=== PATIENT | female | born 1980 | race Two or more races ===

== ENCOUNTER 2024-12-18 19:56 | Inpatient (IN) | payer OTHER ==
[2024-12-18 20:25] VITALS: BMI 42.5
[2024-12-18] MEDS ORDERED: NICOTINE 7 MG/24 HOURS TOPICAL PATCH TD ONE (21:14)
[2024-12-18 21:16] LABS: EOS % 2.5 % (0-4.5); HEMATOCRIT 40.1 % (32.4-45.2); HEMOGLOBIN 13.4 GM/dL (10.7-15.3); LYMPH % 48.7 % (8-40); MCHC 33.5 g/dl (32.0-36.0); MEAN CELL VOLUME 92.5 fl (80-96); MEAN PLT VOLUME 7.5 fl (7.5-11.1); MONO % 4.9 % (3.8-10.2); NEUT % 42.9 % (42.8-82.8); PLATELET COUNT 252 10^3/uL (134-434); RBC 4.33 M/mm3 (3.60-5.2); RDW 17.3 % (11.6-15.6); WHITE BLOOD COUNT 8.1 K/mm3 (4.0-10.0)
[2024-12-18 21:18] LABS: PH,URINE 5.5 (5.0-8.0); URINE APPEARANCE CLEAR; URINE BILIRUBIN NEGATIVE (NEGATIVE); URINE COLOR YELLOW; URINE GLUCOSE (UA) NEGATIVE (NEGATIVE); URINE KETONE NEGATIVE (NEGATIVE); URINE LEUK ESTERASE NEGATIVE (NEGATIVE); URINE NITRITE NEGATIVE (NEGATIVE); URINE PROTEIN NEGATIVE (NEGATIVE); URINE UROBILINOGEN 0.2 mg/dL (0.2-1.0)
[2024-12-18 21:21] LABS: HCG,QUALITATIVE URINE Negative
[2024-12-18] MEDS: NICOTINE 7 MG/24 HOURS TOPICAL PATCH TD ONE (21:21)
[2024-12-18 21:24] LABS: INR 1.07 (0.83-1.09); PROTHROMBIN TIME (PATIENT) 11.8 SEC (9.7-13.0)
[2024-12-18 21:26] LABS: ACTIVATED PTT 35.1 SECONDS (25.2-36.5)
[2024-12-18 21:33] LABS: COCAINE, UR NEGATIVE (NEGATIVE); METHADONE, UR NEGATIVE (NEGATIVE); URINE AMPHETAMINES NEGATIVE (NEGATIVE); URINE BARBITURATES NEGATIVE (NEGATIVE); URINE BENZODIAZEPINES NEGATIVE (NEGATIVE)
[2024-12-18 21:34] LABS: PHENCYCLIDINE,URINE NEGATIVE (NEGATIVE)
[2024-12-18 21:37] LABS: OPIATES, URI POSITIVE (NEGATIVE)
[2024-12-18 21:54] LABS: LACTIC ACID 2.3 mmol/L (0.4-2.0)
[2024-12-18 21:55] LABS: ALBUMIN 3.8 g/dl (3.4-5.0); BILIRUBIN,TOTAL 0.3 mg/dL (0.2-1); CALCIUM 8.7 mg/dL (8.5-10.1); CREATININE 0.8 mg/dL (0.55-1.3); POTASSIUM 4.6 mmol/L (3.5-5.1)
[2024-12-18 22:30] LABS: HIV INTERPRETATION NEGATIVE (NEGATIVE)
[2024-12-18] MEDS: LACTATED RINGERS SOLUTION 1000 ML INFUS.BAG IV ONE (23:56)
[2024-12-19] MEDS: AMPICILLIN NA/SULBACTAM NA 1.5 GM in SODIUM CHLORIDE 100 ML IVPB ONE ×2 (00:21→00:41)
[2024-12-19] MEDS ORDERED: AMPICILLIN NA/SULBACTAM NA 1.5 GM VIAL ONE (00:31)
[2024-12-19] MEDS ORDERED: MELATONIN 5 MG TABLETS ONE (01:01)
[2024-12-19] MEDS: MELATONIN 5 MG TABLETS PO ONE (01:07)
[2024-12-19] MEDS: FOLIC ACID INJECTION - 1 MG, THIAMINE HCL 100 MG, MULTIVIT INJECTION ADULT 10 ML in SOD... IVPB ONE (03:06)
[2024-12-19] MEDS ORDERED: KETOROLAC TROMETHAMINE 15 MG/ML VIAL ONE (03:27)
[2024-12-19] MEDS: KETOROLAC TROMETHAMINE 15 MG/ML VIAL IVPUSH ONE (03:29)
[2024-12-19] MEDS ORDERED: PIPERACILLIN/TAZOB 4.5 GM 4.5 GM/100 ML BAG IVPB ONE (04:19)
[2024-12-19] MEDS: PIPERACILLIN/TAZOB 4.5 GM 4.5 GM in DEXTROSE 5%-WATER 100 ML IVPB ONE (04:23)
[2024-12-19] MEDS ORDERED: methaDONE HCL 10 MG TABLET PO PRN (05:13)
[2024-12-19] MEDS ORDERED: cloNIDine HCL 0.1 MG TABLET PO PRN (05:13)
[2024-12-19] MEDS ORDERED: ALBUTEROL SO4 HFA INHALER IH PRN (05:19)
[2024-12-19 05:40] LABS: LACTIC ACID 2.6 mmol/L (0.4-2.0)
[2024-12-19] MEDS: PREGABALIN 75 MG CAPSULE PO SCH (06:59)
[2024-12-19] MEDS: LACTATED RINGERS SOLUTION 1,000 ML IV SCH (06:59)
[2024-12-19] MEDS: AZITHROMYCIN 500 MG TABLET PO ONE (07:07)
[2024-12-19] MEDS: INSULIN ASPART SLIDING SCALE (NOVOLOG) 1 VIAL SQ SCH (07:08)
[2024-12-19] MEDS: INSULIN (NOVOLOG) ASPART 100 UNITS/ML 10ML VIAL SQ SCH (07:09)
[2024-12-19] MEDS: chlordiazePOXIDE HCL 25 MG CAPSULE PO SCH (07:38)
[2024-12-19 08:28] LABS: HEMATOCRIT 34.9 % (32.4-45.2); HEMOGLOBIN 11.7 GM/dL (10.7-15.3); MCH 31.4 pg (25.7-33.7); MCHC 33.7 g/dl (32.0-36.0); MEAN CELL VOLUME 93.2 fl (80-96); MEAN PLT VOLUME 7.7 fl (7.5-11.1); PLATELET COUNT 153 10^3/uL (134-434); RBC 3.74 M/mm3 (3.60-5.2); RDW 16.8 % (11.6-15.6); WHITE BLOOD COUNT 6.6 K/mm3 (4.0-10.0)
[2024-12-19 08:44] LABS: POTASSIUM 4.2 mmol/L (3.5-5.1)
[2024-12-19] MEDS: methaDONE HCL 10 MG TABLET PO ONE (08:47)
[2024-12-19 08:52] LABS: ALBUMIN 3.4 g/dl (3.4-5.0); BLOOD UREA NITROGEN 16.4 mg/dL (7-18); CALCIUM 8.5 mg/dL (8.5-10.1); MAGNESIUM 1.9 mg/dL (1.8-2.4)
[2024-12-19 08:56] LABS: PHOSPHOROUS 4.5 mg/dL (2.5-4.9)
[2024-12-19 08:57] LABS: BILIRUBIN,TOTAL 0.5 mg/dL (0.2-1); TOT PROT 6.8 g/dl (6.4-8.2)
[2024-12-19 09:14] LABS: LACTIC ACID 2.3 mmol/L (0.4-2.0)
[2024-12-19] MEDS: ENOXAPARIN NA (PORCINE) 40 MG/0.4 ML DISP.SYRIN SQ SCH (10:23)
[2024-12-19] MEDS: CEFTRIAXONE 1 G/50 ML PREMIX 50 ML IVPB SCH (10:23)
[2024-12-19] MEDS: QUEtiapine FUMARATE 100 MG TABLET (FP) PO SCH (10:24)
[2024-12-19] MEDS: metoPROLOL SUCCINATE 25 MG TAB.SR.24H (FP) PO SCH (10:24)
[2024-12-19] MEDS: NICOTINE 14 MG/24 HOURS TOPICAL PATCH TD SCH (10:24)
[2024-12-19] MEDS: FOLIC ACID 1 MG TABLET (FP) PO SCH (10:24)
[2024-12-19] MEDS: THIAMINE 100 MG TABLET PO SCH (10:24)
[2024-12-19 10:55] LABS: LACTIC ACID 2.7 mmol/L (0.4-2.0)
[2024-12-19] MEDS: ONDANSETRON 4 MG TABLET PO ONE (12:40)
[2024-12-19] MEDS: SODIUM CHLORIDE 1,000 ML IV STA (12:40)
[2024-12-19 13:58] LABS: LACTIC ACID 2.8 mmol/L (0.4-2.0)
[2024-12-19] MEDS: clonazePAM 0.25 MG ODT TABLETS SL PRN (16:15)
[2024-12-19] MEDS: ACETAMINOPHEN 1000 MG/100 ML BAG IVPB PRN (17:54)
[2024-12-19] MEDS: KETOROLAC TROMETHAMINE 15 MG/ML VIAL IVPUSH PRN (20:00)
[2024-12-19] MEDS: chlordiazePOXIDE HCL 25 MG CAPSULE PO PRN (20:07)
[2024-12-19] MEDS ORDERED: NICOTINE 7 MG/24 HOURS TOPICAL PATCH TD ONE (21:10)
[2024-12-19] MEDS: MELATONIN 5 MG TABLETS PO SCH (22:42)
[2024-12-19] MEDS: AMITRIPTYLINE HCL 10 MG TABLET PO SCH (22:42)
[2024-12-19] MEDS: MONTELUKAST NA 10 MG TABLET PO SCH (22:42)
[2024-12-20 01:47] VITALS: TEMP 97.7
[2024-12-20] MEDS: chlordiazePOXIDE HCL 25 MG CAPSULE PO SCH (04:57)
[2024-12-20 07:36] VITALS: BP 153/81; PULSE 63; RESP 20
[2024-12-20] MEDS ORDERED: AZITHROMYCIN 250 MG TABLET PO SCH (10:00)
[2024-12-20] MEDS ORDERED: FLUTICASONE/UMECLIDIN/VILANTER(200-62.5-25 TRELEGY ELLIPTA) INAHLER IH SCH (10:00)
[2024-12-21] MEDS ORDERED: chlordiazePOXIDE HCL 10 MG CAPSULE PO PRN
[2024-12-21] MEDS ORDERED: chlordiazePOXIDE HCL 10 MG CAPSULE PO SCH (05:00)
[2024-12-21] MEDS ORDERED: methaDONE HCL 10 MG TABLET (FOR DETOX USE ONLY) PO ONE (10:00)
[2024-12-22] MEDS ORDERED: chlordiazePOXIDE HCL 10 MG CAPSULE PO SCH (05:00)
[2024-12-23] MEDS ORDERED: chlordiazePOXIDE HCL 10 MG CAPSULE PO ONE (05:00)
[2024-12-23] MEDS ORDERED: methaDONE HCL 10 MG TABLET (FOR DETOX USE ONLY) PO ONE (10:00)
== END 2024-12-20 09:04 | disposition left against medical advice (07) | DRG 894 ==
LOC: JER 19:56 → JERBED 12-19 03:29 → J7W 12-19 05:28
PROVIDERS: ADMIT Student in an Organized Health Care Education/Training Program
DX: F10.239 Alcohol dependence with withdrawal, unspecified (principal); J18.9 Pneumonia, unspecified organism; J44.0 Chronic obstructive pulmonary disease with (acute) lower respiratory infection; M86.60 Other chronic osteomyelitis, unspecified site; R45.851 Suicidal ideations; Z68.41 Body mass index [BMI] 40.0-44.9, adult; I10 Essential (primary) hypertension; F11.10 Opioid abuse, uncomplicated; G40.909 Epilepsy, unspecified, not intractable, without status epilepticus; E11.69 Type 2 diabetes mellitus with other specified complication; F17.210 Nicotine dependence, cigarettes, uncomplicated; E66.9 Obesity, unspecified
CPT/HCPCS: 0241U-QW; 36415; 70450-TC; 71045-TC-FY; 72125-TC; 73560-TC-LT-FY; 73590-TC-LT-FY; 80053; 80307; 81003; 82308; 82962; 83036; 83605; 83735; 84100; 84703; 85025; 85027; 85610; 85730; 86803; 87040; 87086; 87389; 87899; 93005; 93010; 93970-TC; 99285-25; J0131